=== PATIENT | female | born 1965 | race Caucasian/White ===

== ENCOUNTER 2020-11-17 16:50 | Emergency (ER) | payer OTHER ==
[2020-11-17 17:02] VITALS: BP 155/80; TEMP 98
--- NOTE | 2020-11-17 17:39 | ED ---
General Adult HPI - General Chief complaint: Shortness of Breath Stated complaint: ERIKA Time Seen by Provider: 11/17/20 17:26 Source: patient, RN notes reviewed, old records reviewed Mode of arrival: ambulatory Limitations: no limitations - History of Present Illness Initial comments: 55-year-old female history of asthma presents with cough dyspnea for the past several days. Patient denies fever. She denies a known contact with coronavirus. She has not been vaccinated against coronavirus. She states her grandchildren have had an upper respiratory infection. She reports cough which is productive of clear sputum. She denies fever. Denies central chest pain. Denies lower extremity pain or swelling. - Related Data Home Medications Medication Instructions Recorded Confirmed Albuterol Inhaler [Ventolin Hfa 2 puff INHALATION RT-Q4H PRN 11/17/20 11/17/20 Inhaler] Budesonide/Formoterol Fumarate 2 puff INHALATION RT-BID 11/17/20 11/17/20 [Symbicort 80-4.5 Mcg Inhaler] Montelukast [Singulair] 10 mg PO DAILY 11/17/20 11/17/20 Previous Rx's Medication Instructions Recorded Albuterol Nebulized [Ventolin 2.5 mg INHALATION Q4H #75 ml 11/17/20 Nebulized] Azithromycin [Zithromax] 500 mg PO DAILY 6 Days #6 tab 11/17/20 predniSONE 50 mg PO DAILY #5 tab 11/17/20 Allergies Allergy/AdvReac Type Severity Reaction Status Date / Time No Known Allergies Allergy Verified 11/17/20 18:21 Review of Systems ROS Statement: Those systems with pertinent positive or pertinent negative responses have been documented in the HPI. ROS Other: All systems not noted in ROS Statement are negative. Past Medical History Past Medical History: Asthma History of Any Multi-Drug Resistant Organisms: None Reported Past Surgical History: Section, Cholecystectomy Past Psychological History: No Psychological Hx Reported Smoking Status: Never smoker Past Alcohol Use History: None Reported Past Drug Use History: None Reported General Exam Limitations: no limitations General appearance: alert, in no apparent distress Head exam: Present: atraumatic, normocephalic Eye exam: Present: normal appearance, PERRL Neck exam: Present: normal inspection. Absent: tenderness, meningismus Respiratory exam: Present: respiratory distress, wheezes, decreased breath sounds Cardiovascular Exam: Present: regular rate, normal rhythm GI/Abdominal exam: Present: soft. Absent: distended, tenderness Extremities exam: Present: normal inspection, normal capillary refill. Absent: pedal edema, calf tenderness Neurological exam: Present: alert, oriented X3, CN II-XII intact. Absent: motor sensory deficit Psychiatric exam: Present: normal affect, normal mood Skin exam: Present: warm, dry, intact. Absent: cyanosis, diaphoretic Course Vital Signs 11/17/20 16:58 Temperature 98.0 F Pulse Rate 94 Respiratory 18 Rate Blood Pressure 155/80 O2 Sat by Pulse 93 L Oximetry Medical Decision Making - Medical Decision Making 55-year-old female with cough congestion, mild dyspnea. Patient does have a productive cough, bronchospasm, decreased air entry bilaterally. No significant respiratory distress, pulse oximetry on room air is 93% prior to treatment. X- ray shows concern for developing right-sided infiltrate. Patient started on both antibiotics and steroids in the emergency department. She is offered observation by prefers discharge at this time. She will monitor symptoms closely she will be prescribed short course of steroids and antibiotics. She will continue to use albuterol at home as needed. Return parameters are discussed. - Lab Data Lab Results 11/17/20 Range/Units 17:33 Coronavirus (PCR) Not Detected (Not Detectd) Disposition Clinical Impression: Asthma with acute exacerbation, Pneumonia Disposition: HOME SELF-CARE Condition: Fair Instructions (If sedation given, give patient instructions): Asthma (ED), Pneumonia (ED) Prescriptions: predniSONE 50 mg PO DAILY #5 tab Albuterol Nebulized [Ventolin Nebulized] 2.5 mg INHALATION Q4H #75 ml Azithromycin [Zithromax] 500 mg PO DAILY 6 Days #6 tab Is patient prescribed a controlled substance at d/c from ED?: No Referrals: Mariana Tinoco DO [Primary Care Provider] - 1-2 days Time of Disposition: 18:27
--- NOTE | 2020-11-17 18:15 | XR ---
EXAMINATION TYPE: XR chest 2V DATE OF EXAM: 11/17/2020 COMPARISON: NONE HISTORY: Cough TECHNIQUE: Frontal and lateral views of the chest are obtained. FINDINGS: There is subtle mild perihilar hazy opacity. No pleural effusion, or pneumothorax seen. T he cardiac silhouette size is within normal limits. The osseous structures are intact. IMPRESSION: Subtle mild hazy opacity, for which infiltrate cannot be excluded.
[2020-11-17] MEDS ORDERED: predniSONE 50 MG TAB PO STA (18:24)
[2020-11-17] MEDS ORDERED: AZITHROMYCIN 500 MG TAB PO STA (18:24)
[2020-11-17] MEDS ORDERED: IPRATROPIUM-ALBUTEROL 3 ML NEB INHALATION STA (18:25)
[2020-11-17] MEDS ORDERED: ALBUTEROL NEBULIZED 2.5 MG/3 ML INHALATION STA (18:25)
[2020-11-17 19:22] VITALS: PULSE 89; RESP 20
== END 2020-11-17 19:22 | disposition home or self-care (01) ==
LOC: EC 16:50
DX: J45.901 Unspecified asthma with (acute) exacerbation (principal); J18.9 Pneumonia, unspecified organism; Z90.49 Acquired absence of other specified parts of digestive tract; Z20.822 Contact with and (suspected) exposure to COVID-19; Z79.899 Other long term (current) drug therapy
CPT/HCPCS: 99285; 94640; 87635; 71046; J7512